=== PATIENT | female | born 1990 | race Caucasian/White ===

== ENCOUNTER → 2018-03-24 | Outpatient (CLI) | payer BC | END | disposition home or self-care (01) | LOC: C.LAB1850 10:07 | PROVIDERS: ATTEND Obstetrics & Gynecology | DX: Z34.92 Encounter for supervision of normal pregnancy, unspecified, second trimester (principal) ==

== ENCOUNTER 2018-09-09 10:16 | Inpatient (IN) ==
[2018-09-09] MEDS ORDERED: LACTATED RINGER'S 1,000 ML IV PRN ×3 (10:55→13:33)
[2018-09-09] MEDS ORDERED: OXYTOCIN 30 UNITS/500 ML BAG IV PRN ×3 (10:55→17:31)
[2018-09-09] MEDS: LACTATED RINGER'S 1,000 ML IV SCH ×2 (11:26→13:58)
[2018-09-09 11:31] LABS: Hematocrit (blood only) 32.9 % (37-47); Hemoglobin 11.1 g/dL (12.0-16.0); Mean Corpuscular Volume 90.9 fL (80-100); Mean Platelet Volume 10.8 fL (7.4-10.4); Platelet Count 260 K/uL (130-400); RDW Coefficient of Variation 13.4 % (11.5-14.5); RDW Standard Deviation 44.2 fL (36.4-46.3); Red Blood Count 3.62 M/uL (4.2-5.4); White Blood Count 10.84 K/uL (4.8-10.8)
[2018-09-09 11:35] LABS: Mean Corpuscular Hgb Conc 33.7 g/dL (32-36)
--- NOTE | 2018-09-09 12:44 | History & Physical Report ---
Date of Service September 09, 2018 Assessment & Plan (1) Prolonged , antepartum: - tracing on L&D Cat I - pt is postdates with favorable cervix - given the decelerations seen in office, will move towards induction - AROM, clear fluid, IUPC placed, pitocin per induction protocol - anticipate History of Present Illness Chief Complaint: Postdates Primary Care Provider: NO PCP The patient is a 28-year-old 2 para 1 with an EDC of 07 September by dates and first trimester ultrasound who was admitted at 40+ weeks gestational age for induction. 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 This was confirmed at a maternal medicine consult in [place]. The patient had cell free DNA screening which was reassuring, she had negative cystic fibrosis screening, and had negative torch titers. The patient was seen today in the office for a routine OB check. Nonstress test showed some decelerations and the patient was sent to labor and delivery for evaluation. Laboratory values for this show blood type of O+, antibody negative, rubella immune, hepatitis B negative, normal 1 hour Glucola x2, and a negative third trimester beta strep culture. Allergies Allergy/AdvReac Type Severity Reaction Status Date / Time No Known Allergies Allergy Unverified 04/30/15 20:57 Home Medications Home Medications Medication Instructions Recorded Confirmed Type vit no.[id number] 1 tab PO DAILY 09/09/18 09/09/18 History [ Vitamin] ranitidine HCl [Zantac] 150 mg PO DAILY 09/09/18 09/09/18 History Patient History Medical History Cholecystectomy planned Surgical History History of cholecystectomy Status post wrist surgery Social History marital status: Current Living Situation: Spouse Other Information That Helps Us Care for You: No Feels Safe at Home: Yes Safety Concerns: Feels Safe At This Time Smoking Status: Never smoker Hx Alcohol Use: No Hx Substance Use: No Beliefs That Will Affect Care: None Preferred Language: Lebanese Communication Ability: Effective Physical Exam 2 Vital Signs (Past 24 Hours): Last Vital Signs Temp 36.9 C 09/09/18 10:30 Pulse 78 09/09/18 12:24 Resp 18 09/09/18 10:30 BP 110/67 09/09/18 12:24 Constitutional: WD/WN, vitals as above Respiratory: Auscultation: lungs clear to auscultation bilaterally Cardiovascular: RRR, no murmur, no edema Extremities: no calf tenderness Gastrointestinal (Abdomen): gravid, vtx, (+) FHT's, EFW 8 1/2 lbs Genitourinary: Manual OB Exam: + cervical dilation 3 cm, + cervical effacement 50%, + station -2 and + amniotic fluid clear OB Exam Monitor Tracing: + external FHT monitor used and + category I
[2018-09-09] MEDS ORDERED: BUPIVACAINE 0.25% 30 ML VIAL ONE (13:20)
[2018-09-09] MEDS ORDERED: ePHEDrine sulfate 50 MG/ML AMP ONE (13:20)
[2018-09-09] MEDS ORDERED: fentaNYL 2MCG/ML ROPIV 1.25MG/ML 100 ML BAG EPI ONE (13:21)
[2018-09-09] MEDS ORDERED: fentaNYL citrate 100 MCG/2 ML VIAL ONE (13:21)
[2018-09-09] MEDS ORDERED: DiphenhydrAMINE HCL 50 MG/ML VIAL IV PRN (13:33)
[2018-09-09] MEDS ORDERED: NALBUPHINE HCL INJ 10 MG/ML AMP IV PRN (13:33)
[2018-09-09] MEDS ORDERED: ONDANSETRON INJ 2 MG/ML 2 ML VIAL IV PRN (13:33)
[2018-09-09] MEDS ORDERED: NALOXONE HCL 0.4 MG/1 ML VIAL/CARP IV PRN (13:33)
[2018-09-09] MEDS ORDERED: NALOXONE HCL 1 MG in SODIUM CHLORIDE 0.9% 1000ML 1,000 ML IV PRN (13:33)
[2018-09-09] MEDS ORDERED: fentaNYL 2MCG/ML ROPIV 1.25MG/ML 100 ML BAG EPI PRN (13:33)
[2018-09-09] MEDS ORDERED: ePHEDrine sulfate 50 MG/ML AMP IV PRN (13:33)
--- NOTE | 2018-09-09 13:35 | Anesthesiology Consultation ---
Date of Service September 09, 2018 Assessment & Plan (1) Encounter for pre-operative examination: Chart Review Chart Review: Acceptable Risk for Labor Epidural Consults Requested none ASA ASA2 Proposed Anesthesia Anesthesia Type: Labor Epidural Risk / Benefits Reviewed With: PT / POA / Parent / Guardian, Accepts Plan and Informed Consent Obtained History Height/Weight Height: 5 ft 6 in Weight: 90.718 kg Allergies Allergy/AdvReac Type Severity Reaction Status Date / Time No Known Allergies Allergy Unverified 04/30/15 20:57 Medications Home Medications Medication Instructions Recorded Confirmed Last Taken vit no.[id number] 1 tab PO DAILY 09/09/18 09/09/18 09/07/18 23:00 [ Vitamin] ranitidine HCl [Zantac] 150 mg PO DAILY 09/09/18 09/09/18 09/09/18 07:30 Active Medications Generic Name Dose Route Start Last Admin Trade Name Freq PRN Reason Stop Dose Admin Lactated Ringer's 1,000 mls @ 125 mls/hr 09/09/18 11:00 09/09/18 13:11 Lr IV 09/11/18 10:59 999 mls/hr .Q8H RUPAL Infusion Oxytocin 30 units in 500 mls @ 5 mls/hr 09/09/18 10:58 09/09/18 13:00 Pitocin IV 09/11/18 10:57 0.3 units/hr .Q24H PRN 5 mls/hr Labor Induction/Augmentation Titration Protocol 0.3 UNITS/HR Past Medical History Medical History Cholecystectomy planned Past Surgical History Surgical History History of cholecystectomy Status post wrist surgery Past Anesthesia History No Hx of Anesthesia Complications and No Family Hx of Anesthesia Complications History of PONV No Motion Sickness Screening History of Motion Sickness: No Social History Smoking Status: Never smoker Hx Alcohol Use: No Hx Substance Use: No Exercise / Class Metabolic Activity II 4-5 Yardwork/Stairs/Walk up hill Physical Exam Vital Signs Last Vital Signs Temp 98.2 F 09/09/18 12:00 Pulse 93 H 09/09/18 13:33 Resp 18 09/09/18 12:30 BP 110/67 09/09/18 12:24 Pulse Ox 92 09/09/18 13:33 ENMT Mouth: no dentition abnormality Thyromental Distance: > or= 3.5 Finger Breadths Mallampati Class: II Neck normal visual inspection Respiratory normal respiratory effort Auscultation: lungs clear to auscultation bilaterally Cardiovascular Rate/Rhythm: regular rate and regular rhythm Testing Laboratory Results 09/09/18 11:18
[2018-09-09] MEDS ORDERED: ACETAMINOPHEN 325 MG TAB PO PRN (17:31)
[2018-09-09] MEDS ORDERED: HYDROCORTISONE ACETATE 25 MG SUPP PR PRN (17:31)
[2018-09-09] MEDS ORDERED: SUPERCREAM 0.870% 15 GM JAR EXT PRN (17:31)
[2018-09-09] MEDS ORDERED: ACETAMINOPHEN W/CODEINE #3 1 TAB PO PRN (17:31)
[2018-09-09] MEDS ORDERED: DIPHTHERIA/TETANUS/PERTUSSIS 0.5 ML SYR/VIAL IM ONE (17:31)
[2018-09-09] MEDS ORDERED: BENZOCAINE 20% AER SPR 82.5 GM CAN EXT PRN (17:31)
[2018-09-09 17:39] LABS: Base Excess Cord Venous Blood -1.2 mEq/L (-7.7-1.9); Cord Venous Blood HCO3 24 mmol/L (18.4-26.8); Cord Venous Blood PCO2 43 mmHg (30.4-57.2); Cord Venous Blood PO2 31 mmHg (14.1-43.3); Cord Venous Blood pH 7.37 (7.20-7.44)
--- NOTE | 2018-09-09 18:07 | Anesthesia Procedure Note ---
Date of Service September 09, 2018 Anesthesia Post Epidural Note Vital Signs Vital Signs: Temp Pulse Resp BP Pulse Ox 09/09/18 18:05 88 115/73 09/09/18 17:50 78 125/66 09/09/18 17:35 82 137/77 09/09/18 17:20 100 H 124/65 09/09/18 17:05 100 H 123/60 09/09/18 17:04 91 H 96 09/09/18 16:59 104 H 96 09/09/18 16:54 95 H 96 09/09/18 16:53 92 H 138/97 09/09/18 16:49 112 H 96 09/09/18 16:46 143 H 91 09/09/18 16:44 136 H 96 09/09/18 16:39 92 H 98 09/09/18 16:38 88 111/65 09/09/18 16:34 91 H 96 09/09/18 16:29 89 98 09/09/18 16:24 91 H 98 09/09/18 16:23 87 110/61 09/09/18 16:20 98.2 F 20 09/09/18 16:19 107 H 96 09/09/18 16:14 77 96 09/09/18 16:09 77 96 09/09/18 16:08 74 108/59 L 09/09/18 16:06 87 92 09/09/18 16:04 83 97 09/09/18 15:59 77 97 09/09/18 15:54 74 96 09/09/18 15:53 77 115/64 09/09/18 15:49 76 96 09/09/18 15:44 74 97 09/09/18 15:39 68 105/60 97 09/09/18 15:34 75 97 09/09/18 15:29 75 97 09/09/18 15:24 73 107/60 97 09/09/18 15:19 73 96 09/09/18 15:14 82 97 09/09/18 15:09 78 98 09/09/18 15:08 98.1 F 76 108/60 09/09/18 15:04 72 98 09/09/18 15:00 18 09/09/18 14:59 78 97 09/09/18 14:54 77 96 09/09/18 14:53 78 110/59 L 09/09/18 14:49 77 97 09/09/18 14:44 90 97 09/09/18 14:41 77 112/61 09/09/18 14:39 90 98 09/09/18 14:34 85 97 09/09/18 14:30 20 09/09/18 14:29 82 97 09/09/18 14:24 79 97 09/09/18 14:23 80 107/63 94 09/09/18 14:19 82 96 09/09/18 14:14 81 97 09/09/18 14:09 82 97 09/09/18 14:07 82 121/61 89 L 09/09/18 14:06 81 89/50 L 09/09/18 14:04 88 98 09/09/18 14:03 77 102/54 L 09/09/18 14:00 98.4 F 86 18 99/57 L 09/09/18 13:59 86 98 09/09/18 13:56 89 99/58 L 09/09/18 13:54 84 97/54 L 98 09/09/18 13:53 87 104/51 L 09/09/18 13:51 76 107/61 09/09/18 13:49 85 97 09/09/18 13:48 73 101/57 L 09/09/18 13:44 92 H 98 09/09/18 13:39 97 H 97 09/09/18 13:34 80 97 09/09/18 13:33 93 H 92 09/09/18 13:29 92 H 96 09/09/18 13:24 78 96 09/09/18 13:19 90 97 09/09/18 12:30 18 09/09/18 12:24 78 110/67 09/09/18 12:00 98.2 F 18 09/09/18 10:30 98.4 F 18 09/09/18 10:28 84 119/79 Pain Intensity Bilateral Abdomen: Pain Intensity: 0 Notes Mental Status: alert / awake / arousable and participated in evaluation Patient Amnestic to Procedure: Yes Nausea / Vomiting: adequately controlled Pain: adequately controlled Airway Patency, RR, SpO2: stable & adequate BP & HR: stable & adequate Hydration State: stable & adequate Neuraxial Anesthesia: was administered and sensory block is resolving Anesthetic Complications: no major complications apparent and Pt Satisfied with anesthetic care Epidural: Removed without complications and With tip intact
[2018-09-09] MEDS: IBUPROFEN 600 MG TAB PO PRN ×2 (18:36→23:52)
--- NOTE | 2018-09-09 19:36 | Delivery Summary ---
DATE OF OPERATION: 09/09/2018 FINDINGS: Viable male with Apgars of 8 and 10. Baby delivered over a midline second degree laceration and left labial laceration. Cord gases and cord blood samples obtained. Placenta delivered spontaneously and sent for pathological evaluation. Lacerations repaired with 4-0 Vicryl in routine fashion. ESTIMATED BLOOD LOSS: 300 mL. LABOR NOTE: The patient is a 28-year-old 2, para 1, with an EDC of 09/07/2018 by dates and first trimester ultrasound, who was admitted at 40+ weeks gestational age for induction. 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 This was confirmed in a maternal medicine consult in [place]. The patient had cell-free DNA screening which was reassuring, she had a negative cystic fibrosis screening, and she had negative TORCH titers. Patient was seen today in the office for routine OB check. Nonstress test showed some decelerations, and the patient was sent to labor and delivery for evaluation. Laboratory values for this show blood type of O positive, antibody negative, rubella immune, hepatitis B negative, normal 1-hour Glucola x2, negative third trimester beta strep culture. Upon admission, patient was 3 cm dilated, 50% effaced, and -2 station. Tracing was category 1 with good accelerations. Artificial rupture of membranes for clear fluid. Intrauterine pressure catheter was placed, and Pitocin was initiated per induction protocol. Patient progressed into a regular labor pattern. Anesthesia was consulted, and an epidural was placed. Over 5 hours, the patient progressed to full dilatation and began her second stage. She pushed for approximately 10 minutes delivering the viable male infant over the midline laceration. Cord was clamped and cut. Cord gases and cord blood samples obtained. Placenta delivered spontaneously and sent for pathological evaluation. Inspection of the perineum showed a midline second-degree laceration and a second degree left labial laceration. These were repaired with 4-0 Vicryl. Estimated blood loss was 300 mL. Sponge and needle counts were correct. I attest to the content of the Intraoperative Record and any orders documented therein. Any exception s are noted below.
[2018-09-09] MEDS: DOCUSATE SODIUM 100 MG CAP PO SCH (21:45)
[2018-09-10] MEDS: IBUPROFEN 600 MG TAB PO PRN ×3 (04:24→18:01)
--- NOTE | 2018-09-10 06:23 | Obstetrical Progress Note ---
Date of Service <Urban Chen MD - Last Filed: 09/10/18 06:23> September 10, 2018 Assessment & Plan <Urban Chen MD - Last Filed: 09/10/18 06:23> (1) Vaginal delivery: Maria R Victoria is a 28yo F who presented at 40+ weeks of for induction with AROM now s/p PPD#1 - Blood type O+, Ab negative, RI, hepatitis B negative, GBS negative - Feels well today. Eating well, voiding well, ambulating well. - Breast feeding well without difficulty - Pain well controlled with ibuprofen 600mg Q4H PRN. - Routine care - After discharge will have [address] Sanchez. (2) 40 weeks gestation of : Subjective <Urban Chen MD - Last Filed: 09/10/18 06:23> Ambulation: ambulating normally Voiding: no voiding problems Passing Gas:: Yes Diet Tolerance:: regular diet Lochia:: Moderate (slightly more than a period) Feeding Type:: breast feeding Current Pain Level(1-10): 3 (improved with motrin) Review of Systems Denies fever, chills, sweats Denies shortness of breath, difficulty breathing, chest pain, palpitations, chest pressure. Denies breast pain. Denies dysuria. Denies headache. Physical Exam <Urban Chen MD - Last Filed: 09/10/18 06:23> Vital Signs (Past 24 Hours) Last Vital Signs Temp 36.5 C 09/10/18 04:45 Pulse 78 09/10/18 04:45 Resp 18 09/10/18 04:45 BP 111/70 09/10/18 04:45 Pulse Ox 97 09/09/18 19:25 General: Alert, oriented. No acute distress. Cardiac: Regular rate and rhythm, no murmurs/rubs/gallops. Respiratory: Clear to auscultation anterior and posteriorly, no wheezes/rales/ rhonchi. No increased work of breathing. Symmetrical chest rise. No respiratory distress. Abdomen: Soft, nontender, nondistended. Bowel sounds present. Uterus: Uterine fundus firm, palpable ~2cm below umbilicus. Lower Extremities: No lower extremity edema or swelling. No deep calf pain. Mauricio's negative bilaterally. <Faustino Sanchez Jr, MD, FACOG - Last Filed: 09/10/18 07:23> Co-Signing Physician Notes Resident Physician Supervision Note: I was present with Dr. Weber during the history and exam. I discussed the case with the resident and agree with the findings and plan as documented in the note. Any exceptions or clarifications are listed here: [None] Documented By: Faustino Sanchez Jr, MD, FACOG Resident Activity Tracking <Urban Chen MD - Last Filed: 09/10/18 06:23> Resident Involvement: Resident Care Provided Care Provided: Adult Hospital Medicine
[2018-09-10] MEDS: DOCUSATE SODIUM 100 MG CAP PO SCH (07:35)
[2018-09-10] MEDS ORDERED: PRENATAL VITAMIN 1 TAB PO SCH (09:00)
[2018-09-10] MEDS ORDERED: FERROUS SULFATE 325 MG TAB PO SCH (09:00)
[2018-09-10] MEDS ORDERED: BISACODYL 5 MG TABEC PO SCH (20:00)
== END 2018-09-10 19:03 | disposition home or self-care (01) | DRG 807 ==
LOC: OPB 10:16 → 4S1 10:19 → 4S2 19:32